=== PATIENT | female | born 1995 | race African-American/Black ===

== ENCOUNTER 2023-04-17 06:25 | Emergency (ER) | payer OTHER ==
[~2023-04-17] VITALS: Ht 167.6 cm; Wt 83.9 kg
[2023-04-17 06:41] VITALS: BP 135/82; PULSE 97; RESP 16; TEMP 98.1; O2SAT 97
== END 2023-04-17 07:20 | disposition home or self-care (01) ==
LOC: MED 06:25
DX: G89.29 Other chronic pain (principal); M25.562 Pain in left knee; Z79.899 Other long term (current) drug therapy
CPT/HCPCS: 99283